=== PATIENT | female | born 1990 | race Hispanic/Latino ===

== ENCOUNTER 2021-02-05 12:18 | Inpatient (IN) | payer OTHER ==
[~2021-02-05] VITALS: Ht 160 cm; Wt 90.7 kg
[2021-02-05 12:54] LABS: BASOPHILS % (AUTO) 0.3 % (0.0-5.0); HEMATOCRIT 36.6 % (36-48); LYMPHOCYTES % (AUTO) 21.1 % (21.0-51.0); MEAN CORPUSCULAR HEMOGLOBIN 29.4 pg (27.0-33.0); MEAN CORPUSCULAR HGB CONC 35.8 g/dL (32.0-36.0); MEAN CORPUSCULAR VOLUME 82.1 fL (79-99); MONOCYTES % (AUTO) 7.6 % (3.0-13.0); NEUTROPHILS % (AUTO) 70.7 % (40.0-77.0); PLATELET COUNT (AUTO) 99 K/uL (130-400); RED BLOOD CELL COUNT(AUTO) 4.46 MIL/uL (4.00-5.50); RED CELL DISTRIBUTION WIDTH 12.3 % (11.0-15.5); WHITE BLOOD COUNT (AUTO) 3.9 K/uL (4.8-10.8)
[2021-02-05 12:57] LABS: APPEARANCE,URINE SL CLOUDY (CLEAR); BILIRUBIN,URINE MODERATE (NEGATIVE); COLOR,URINE DARK YELLOW (YELLOW); GLUCOSE, URINE (UA) NEGATIVE (NEGATIVE); KETONES,URINE >=80 mg/dL (NEGATIVE); LEUKOCYTE ESTERASE ,URINE NEGATIVE (NEGATIVE); NITRATE,URINE NEGATIVE (NEGATIVE); OCCULT BLOOD,URINE MODERATE (NEGATIVE); PROTEIN,URINE 30 mg/dL (NEGATIVE); UROBILINOGEN,URINE >=8.0 mg/dL (0.2-1.0)
[2021-02-05] MEDS ORDERED: ACETAMINOPHEN 500 MG TABLET PO SCH (13:00)
[2021-02-05 13:05] LABS: BACTERIA,URINE Few /HPF (None Seen); MUCUS,URINE Moderate LPF (None Seen); RBC,URINE 0-1 /HPF (0-1); SQUAMOUS EPITHELIAL CELL,UR Rare /HPF (0-2)
[2021-02-05 13:06] LABS: ALBUMIN 3.3 g/dL (3.5-5.0); BILIRUBIN,TOTAL 0.8 mg/dL (0.2-1.0); CREATININE 0.8 mg/dL (0.5-1.5); POTASSIUM 3.3 mmol/L (3.5-5.1); TOTAL PROTEIN, SERUM 7.8 g/dL (6.0-8.3)
[2021-02-05 13:11] LABS: INR 1.07 (0.85-1.15); PROTHROMBIN TIME 11.6 SEC (9.6-11.6)
[2021-02-05 13:12] LABS: PARTIAL THROMBOPLASTIN TIME 30.8 SEC (26.3-35.5)
[2021-02-05] MEDS ORDERED: 0.9%NACL 1000ML 1,000 ML IV ONE (13:30)
[2021-02-05] MEDS ORDERED: LEVOFLOXACIN 750 MG/D5W 150 ML 150 ML ONE (15:37)
[2021-02-05] MEDS ORDERED: KCL 20 MEQ ERTAB PO ONE ×2 (15:37→16:00)
[2021-02-05 15:55] LABS: ABG BASE EXCESS -3.8 mmol/L (-2.0-3.0); ABG HCO3 19.3 mmol/L (21.0-28.0); ABG OXYGEN SATURATION 96.5 % (95.0-99.0); ABG PCO2 30 mmHg (32-45)
[2021-02-05] MEDS ORDERED: ONDANSETRON 4MG INJ IV PRN (17:00)
[2021-02-05] MEDS ORDERED: VANCOMYCIN PROTOCOL PER PHARMACY IV PRN (17:00)
[2021-02-05] MEDS ORDERED: ACETAMINOPHEN 325 MG TAB PO PRN (17:00)
[2021-02-05] MEDS: 0.9%NACL 1000ML 1,000 ML IV SCH (17:25)
[2021-02-05] MEDS: CEFTRIAXONE 1G VIAL IV SCH (17:25)
[2021-02-05] MEDS: DOXYCYCLINE 100MG+NS 250ML 250 ML IV SCH (17:54)
[2021-02-05] MEDS ORDERED: COMPOUND IV REFRIGERATED 1 EACH IVSOLN MISC PRN (18:00)
[2021-02-05] MEDS: VANCOMYCIN 1.25GM/NS 250ML IVPB SCH ×2 (21:07)
[2021-02-05] MEDS: FAMOTIDINE 20MG VIAL IV SCH (21:07)
[2021-02-05 21:52] LABS: AMPHET/METH SCREEN,URINE NEGATIVE (NEGATIVE); BARBITURATE SCREEN, URINE NEGATIVE (NEGATIVE); BENZODIAZEPINES SCREEN,URINE NEGATIVE (NEGATIVE); CANNABINOID SCREEN,URINE POSITIVE (NEGATIVE); COCAINE SCREEN,URINE NEGATIVE (NEGATIVE); OPIATE SCREEN,URINE NEGATIVE (NEGATIVE); PHENCYCLIDINE SCREEN,URINE NEGATIVE (NEGATIVE)
[2021-02-06 03:35] VITALS: BP 143/103
[2021-02-06] MEDS: 0.9%NACL 1000ML 1,000 ML IV SCH ×2 (04:54→13:00)
[2021-02-06] MEDS: DOXYCYCLINE 100MG+NS 250ML 250 ML IV SCH ×2 (04:54→17:30)
[2021-02-06 06:30] LABS: BASOPHILS % (AUTO) 0.4 % (0.0-5.0); LYMPHOCYTES % (AUTO) 28.9 % (21.0-51.0); MEAN CORPUSCULAR HEMOGLOBIN 29.4 pg (27.0-33.0); MEAN CORPUSCULAR HGB CONC 35.5 g/dL (32.0-36.0); MEAN CORPUSCULAR VOLUME 82.9 fL (79-99); MONOCYTES % (AUTO) 9.5 % (3.0-13.0); NEUTROPHILS % (AUTO) 60.8 % (40.0-77.0); PLATELET COUNT (AUTO) 87 K/uL (130-400); RED CELL DISTRIBUTION WIDTH 12.4 % (11.0-15.5); WHITE BLOOD COUNT (AUTO) 2.6 K/uL (4.8-10.8)
[2021-02-06 06:46] LABS: CREATININE 0.6 mg/dL (0.5-1.5); CRP QUANTITATIVE 135.3 mg/L (0.00-9.0); POTASSIUM 3.4 mmol/L (3.5-5.1)
[2021-02-06 07:23] LABS: BAND NEUTROPHILS % (MANUAL) 4 % (0-2); LYMPHOCYTES % (MANUAL) 33 % (22-44); MONOCYTES % (MANUAL) 8 % (2-9); SEGMENTED NEUTROPHILS % 55 % (40-70)
[2021-02-06 07:24] LABS: MAN.DIFF COMMENT-IMPRESSION MANUAL DIFFERENTIAL
[2021-02-06] MEDS ORDERED: SODIUM CHLORIDE 3% FOR INHALATION 4 ML/AMP VIAL.NEB IH ONE ×2 (07:29→13:33)
[2021-02-06 08:00] VITALS: BP 116/71
[2021-02-06] MEDS ORDERED: ENOXAPARIN SODIUM 40 MG/0.4 ML SYRINGE SQ SCH (09:00)
[2021-02-06] MEDS ORDERED: LEVOFLOXACIN 750 MG/D5W 150 ML 150 ML IV SCH (09:00)
[2021-02-06] MEDS: FAMOTIDINE 20MG VIAL IV SCH ×2 (09:33→19:30)
[2021-02-06] MEDS: VANCOMYCIN 1.25GM/NS 250ML IVPB SCH ×2 (09:33)
[2021-02-06 11:57] VITALS: BP 119/77
[2021-02-06] MEDS: ACETAMINOPHEN 325 MG TAB PO PRN (12:41)
[2021-02-06 16:00] VITALS: BP 123/71
[2021-02-06] MEDS: CEFTRIAXONE 1G VIAL IV SCH (17:30)
[2021-02-06] MEDS ORDERED: POTASSIUM CHLORIDE 10MEQ SR TAB PO SCH (18:00)
[2021-02-06 19:22] VITALS: BP 134/72
[2021-02-06 23:36] VITALS: BP 118/63
[2021-02-07] MEDS: ACETAMINOPHEN 325 MG TAB PO PRN ×2 (00:42→16:45)
[2021-02-07] MEDS: DOXYCYCLINE 100MG+NS 250ML 250 ML IV SCH ×2 (03:28→16:44)
[2021-02-07] MEDS: 0.9%NACL 1000ML 1,000 ML IV SCH ×3 (03:28→19:00)
[2021-02-07 04:14] VITALS: BP 111/64
[2021-02-07 06:32] LABS: BASOPHILS % (AUTO) 0.6 % (0.0-5.0); EOSINOPHILS % (AUTO) 0.6 % (0.0-8.0); HEMATOCRIT 33.7 % (36-48); LYMPHOCYTES % (AUTO) 33.6 % (21.0-51.0); MEAN CORPUSCULAR HEMOGLOBIN 28.6 pg (27.0-33.0); MEAN CORPUSCULAR HGB CONC 32.6 g/dL (32.0-36.0); MEAN CORPUSCULAR VOLUME 87.5 fL (79-99); NEUTROPHILS % (AUTO) 55.3 % (40.0-77.0); PLATELET COUNT (AUTO) 103 K/uL (130-400); RED BLOOD CELL COUNT(AUTO) 3.85 MIL/uL (4.00-5.50); RED CELL DISTRIBUTION WIDTH 12.5 % (11.0-15.5); WHITE BLOOD COUNT (AUTO) 3.2 K/uL (4.8-10.8)
[2021-02-07 06:59] LABS: ALBUMIN 2.6 g/dL (3.5-5.0); BILIRUBIN,TOTAL 0.4 mg/dL (0.2-1.0); CREATININE 0.7 mg/dL (0.5-1.5); POTASSIUM 3.7 mmol/L (3.5-5.1); TOTAL PROTEIN, SERUM 6.5 g/dL (6.0-8.3)
[2021-02-07 08:04] VITALS: BP 111/77
[2021-02-07] MEDS: FAMOTIDINE 20MG VIAL IV SCH ×2 (08:42→20:03)
[2021-02-07 11:03] VITALS: BP 112/68
[2021-02-07 15:58] VITALS: BP 111/79
[2021-02-07] MEDS: CEFTRIAXONE 1G VIAL IV SCH (16:44)
[2021-02-07 19:24] VITALS: BP 123/49
[2021-02-07] MEDS: TERBINAFINE HCL 15 GM TUBE TP SCH (21:55)
[2021-02-07 23:29] VITALS: BP 118/53
[2021-02-08 03:30] VITALS: BP 117/63
[2021-02-08] MEDS: ACETAMINOPHEN 325 MG TAB PO PRN ×2 (03:34→08:43)
[2021-02-08] MEDS: 0.9%NACL 1000ML 1,000 ML IV SCH (04:07)
[2021-02-08] MEDS: DOXYCYCLINE 100MG+NS 250ML 250 ML IV SCH (04:07)
[2021-02-08 07:19] LABS: BASOPHILS % (AUTO) 0.6 % (0.0-5.0); EOSINOPHILS % (AUTO) 0.6 % (0.0-8.0); HEMATOCRIT 31.7 % (36-48); LYMPHOCYTES % (AUTO) 31.3 % (21.0-51.0); MEAN CORPUSCULAR HEMOGLOBIN 29.1 pg (27.0-33.0); MEAN CORPUSCULAR HGB CONC 34.1 g/dL (32.0-36.0); MEAN CORPUSCULAR VOLUME 85.4 fL (79-99); MONOCYTES % (AUTO) 7.2 % (3.0-13.0); NEUTROPHILS % (AUTO) 58.9 % (40.0-77.0); PLATELET COUNT (AUTO) 125 K/uL (130-400); RED BLOOD CELL COUNT(AUTO) 3.71 MIL/uL (4.00-5.50); RED CELL DISTRIBUTION WIDTH 12.6 % (11.0-15.5); WHITE BLOOD COUNT (AUTO) 3.5 K/uL (4.8-10.8)
[2021-02-08 07:40] LABS: ALBUMIN 2.5 g/dL (3.5-5.0); BILIRUBIN,TOTAL 0.4 mg/dL (0.2-1.0); CREATININE 0.7 mg/dL (0.5-1.5); MAGNESIUM 1.8 mg/dL (1.80-2.40); POTASSIUM 3.6 mmol/L (3.5-5.1); TOTAL PROTEIN, SERUM 6.5 g/dL (6.0-8.3)
[2021-02-08 08:00] VITALS: BP 111/57
[2021-02-08] MEDS: FAMOTIDINE 20MG VIAL IV SCH (08:40)
[2021-02-08] MEDS: TERBINAFINE HCL 15 GM TUBE TP SCH (08:41)
[2021-02-08 11:55] VITALS: BP 123/70
[2021-02-08] MEDS ORDERED: DOXY-336 PO (13:54)
[2021-02-08] MEDS ORDERED: PANT20TA PO (13:54)
== END 2021-02-08 17:00 | disposition home or self-care (01) | DRG 872 ==
LOC: EDH 12:18 → EDHIP 12:19 → UNDOADMIN 16:32 → 4BH 02-06 03:40
PROVIDERS: ADMIT Internal Medicine; ATTEND Internal Medicine
DX: A41.9 Sepsis, unspecified organism (principal); E87.1 Hypo-osmolality and hyponatremia; D61.818 Other pancytopenia; A75.9 Typhus fever, unspecified; A79.9 Rickettsiosis, unspecified; D69.6 Thrombocytopenia, unspecified; E66.9 Obesity, unspecified; Z20.822 Contact with and (suspected) exposure to COVID-19; Z68.35 Body mass index [BMI] 35.0-35.9, adult; R53.81 Other malaise; E86.0 Dehydration; E86.1 Hypovolemia; K75.9 Inflammatory liver disease, unspecified; F12.90 Cannabis use, unspecified, uncomplicated; B37.9 Candidiasis, unspecified; Z98.891 History of uterine scar from previous surgery; Z71.41 Alcohol abuse counseling and surveillance of alcoholic; Z71.89 Other specified counseling; Z83.3 Family history of diabetes mellitus; Z82.49 Family history of ischemic heart disease and other diseases of the circulatory system
CPT/HCPCS: 36415; 36600; 70450; 71045; 71250; 76705; 80048; 80053; 80305; 81001; 81025; 82550; 82803; 83605; 83735; 84145; 84484; 85025; 85610; 85651; 85730; 86140; 86701; 86757; 87040; 87071; 87088; 87205; 87390; 87635; 87804; 87880; 93005; 94640; C9803; G0378; J0696; J1956; J3370; J3490; J7030; J7050

== ENCOUNTER 2021-07-14 14:16 | Emergency (ER) | payer MEDICAID ==
[~2021-07-14] VITALS: Ht 160 cm; Wt 89.8 kg
[~2021-07-14 14:16] MED LIST: DOXY-336 PO; PANT20TA PO
[2021-07-14 14:20] VITALS: BP 113/70
[2021-07-14] MEDS ORDERED: IBUPROFEN 600 MG TABLET ONE (14:28)
[2021-07-14] MEDS ORDERED: TETANUS/DIPHTHERIA TOXOID [ADULT] 0.5 ML VIAL IM ONE ×2 (14:29→14:30)
[2021-07-14] MEDS ORDERED: IBUPROFEN 600 MG TABLET PO ONE (14:30)
[2021-07-14] MEDS ORDERED: CEPH500B PO (15:07)
[2021-07-14] MEDS ORDERED: IBUP-2071 PO (15:08)
[2021-07-14] MEDS ORDERED: CEPHALEXIN 500 MG CAPSULE PO ONE (15:30)
== END 2021-07-14 15:32 | disposition home or self-care (01) ==
LOC: EDH 14:16
DX: S91.131A Puncture wound without foreign body of right great toe without damage to nail, initial encounter (principal); L03.031 Cellulitis of right toe; W45.0XXA Nail entering through skin, initial encounter; Y93.89 Activity, other specified; Y92.89 Other specified places as the place of occurrence of the external cause; Y99.8 Other external cause status
CPT/HCPCS: 73630; 90471; 90714

== ENCOUNTER 2022-12-03 09:11 | Emergency (ER) | payer MEDICAID ==
[~2022-12-03] VITALS: Ht 160 cm; Wt 89.8 kg
[~2022-12-03 09:11] MED LIST changes: +CEPH500B PO; -DOXY-336 PO; +DOXY-469 PO; +IBUP-2071 PO
[2022-12-03 10:41] LABS: SARS-CoV-2, RNA, NAAT POSITIVE SARS CoV-2 (NEGATIVE)
[2022-12-03 11:18] LABS: INFLUENZA TYPE A Negative For Type A (NEGATIVE); INFLUENZA TYPE B Negative For Type B (NEGATIVE)
[2022-12-03 11:45] VITALS: BP 132/70; PULSE 64; RESP 17; O2SAT 99
== END 2022-12-03 12:12 | disposition home or self-care (01) ==
LOC: EDH 09:11
DX: U07.1 COVID-19 (principal); E66.9 Obesity, unspecified; Z79.899 Other long term (current) drug therapy; Z98.890 Other specified postprocedural states
CPT/HCPCS: 99284; 71045; 87635; 87804 ×2; 36415; C9803

== ENCOUNTER 2023-10-04 19:52 | Emergency (ER) | payer SELFPAY ==
[~2023-10-04] VITALS: Ht 160 cm; Wt 97.5 kg
[~2023-10-04 19:52] MED LIST changes: -DOXY-469 PO; +DOXY100C61 PO
[2023-10-04] MEDS: IBUPROFEN 800 MG TAB PO ONE (20:40)
[2023-10-04 20:41] LABS: SARS-CoV-2, RNA, NAAT NEGATIVE SARS CoV-2 (NEGATIVE)
[2023-10-04 20:50] LABS: RAPID GROUP A STREP positive (NEGATIVE)
[2023-10-04 20:52] LABS: INFLUENZA TYPE A Negative For Type A (NEGATIVE); INFLUENZA TYPE B Negative For Type B (NEGATIVE)
[2023-10-04] MEDS ORDERED: METH4TAB3 PO (20:59)
[2023-10-04] MEDS ORDERED: AMOX1TAB16 PO (20:59)
[2023-10-04] MEDS: cefTRIAXone 1G VIAL IM ONE (21:19)
[2023-10-04 21:27] VITALS: BP 134/76; PULSE 66; RESP 16; O2SAT 100
== END 2023-10-04 21:35 | disposition home or self-care (01) ==
LOC: EDH 19:52
DX: J02.0 Streptococcal pharyngitis (principal); E66.9 Obesity, unspecified; Z20.822 Contact with and (suspected) exposure to COVID-19; Z79.899 Other long term (current) drug therapy; Z98.51 Tubal ligation status
CPT/HCPCS: 99284; 87635; 87880; 87804 ×2; 96372; 93005; J0696

== ENCOUNTER 2023-12-29 21:13 | Emergency (ER) | payer OTHER ==
[~2023-12-29] VITALS: Ht 162.6 cm; Wt 108.9 kg
[~2023-12-29 21:13] MED LIST changes: +AMOX1TAB16 PO; +METH4TAB3 PO
[2023-12-29] MEDS: acetaMINOPHEN 500 MG TABLET PO ONE (21:50)
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
[2023-12-29] MEDS: methoCARBamol 500 MG TABLET PO SCH (23:19)
[2023-12-29 23:54] LABS: BASOPHILS # (AUTO) 0.03 K/uL (0.00-0.20); BASOPHILS % (AUTO) 0.3 % (0.0-5.0); EOSINOPHILS # (AUTO) 0.11 K/uL (0.00-0.70); EOSINOPHILS % (AUTO) 1.2 % (0.0-8.0); HEMATOCRIT 33.8 % (36-48); IMMATURE GRANULOCYTE ABSOLUTE 0.03 K/uL (0-1); LYMPHOCYTES % (AUTO) 21.4 % (21.0-51.0); MEAN CORPUSCULAR HEMOGLOBIN 29.5 pg (27.0-33.0); MEAN CORPUSCULAR HGB CONC 35.2 g/dL (32.0-36.0); MEAN CORPUSCULAR VOLUME 83.7 fL (79-99); MONOCYTES # (AUTO) 0.5 K/uL (0.1-1.0); MONOCYTES % (AUTO) 5.5 % (3.0-13.0); NEUTROPHILS # (AUTO) 6.5 K/uL (1.8-7.7); NEUTROPHILS % (AUTO) 71.3 % (40.0-77.0); PLATELET COUNT (AUTO) 193 K/uL (130-400); RED BLOOD CELL COUNT(AUTO) 4.04 MIL/uL (4.00-5.50); RED CELL DISTRIBUTION WIDTH 12.9 % (11.0-15.5); WHITE BLOOD COUNT (AUTO) 9.2 K/uL (4.8-10.8)
[2023-12-30 00:02] LABS: CREATININE 0.8 mg/dL (0.5-1.0); POTASSIUM 5.2 mmol/L (3.5-5.1)
[2023-12-30 00:04] LABS: INR 0.95 (0.85-1.15); PROTHROMBIN TIME 10.3 SEC (9.6-11.6)
[2023-12-30 00:06] LABS: PARTIAL THROMBOPLASTIN TIME 23.6 SEC (26.3-35.5)
[2023-12-30] MEDS ORDERED: IOHEXOL-350 75 ML VIAL IV ONE (00:34)
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
[2023-12-30] MEDS ORDERED: NAPR-1196 PO (01:40)
[2023-12-30] MEDS ORDERED: METH-811 PO (01:40)
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
[2023-12-30 01:41] VITALS: BP 125/52; PULSE 88; RESP 18; TEMP 98.3; O2SAT 96
--- NOTE | 2023-12-30 09:08 | HMCIMG ---
CHEST 1VW REASON: Injury COMPARISON: 12/03/2022 FINDINGS: Single view of the chest was obtained. Lungs are clear. Heart size is normal. There is no pulmonary vascular congestion. Mediastinum and bony thorax appear unremarkable. IMPRESSION: 1. Normal single view chest x-ray.
== END 2023-12-30 01:50 | disposition home or self-care (01) ==
LOC: EDH 21:13
DX: S13.9XXA Sprain of joints and ligaments of unspecified parts of neck, initial encounter (principal); M19.90 Unspecified osteoarthritis, unspecified site; E66.9 Obesity, unspecified; Z79.899 Other long term (current) drug therapy; Z98.51 Tubal ligation status; V89.2XXA Person injured in unspecified motor-vehicle accident, traffic, initial encounter; Y93.I9 Activity, other involving external motion; Y92.89 Other specified places as the place of occurrence of the external cause; Y99.8 Other external cause status
CPT/HCPCS: 99285; 70450; 71045; 80048; 85025; 85610; 85730; 36415; 71260; 70490; Q9967

== ENCOUNTER 2024-12-29 03:02 | Emergency (ER) | payer MEDICAID ==
[~2024-12-29] VITALS: Ht 160 cm; Wt 95.3 kg
--- NOTE | 2024-12-29 03:05 | NUR ---
UA CUP PROVIDED
--- NOTE | 2024-12-29 03:10 | NUR ---
UA COLLECTED AND SENT
[2024-12-29 03:21] LABS: APPEARANCE,URINE CLOUDY (CLEAR); GLUCOSE, URINE (UA) NEGATIVE (NEGATIVE); LEUKOCYTE ESTERASE ,URINE 500 Leu/uL (NEGATIVE); NITRATE,URINE NEGATIVE (NEGATIVE); OCCULT BLOOD,URINE MODERATE (NEGATIVE)
[2024-12-29 03:22] LABS: HCG,QUALITATIVE URINE NEGATIVE (NEGATIVE)
[2024-12-29 03:23] LABS: ADD UA MICROSCOPIC YES
[2024-12-29 03:24] LABS: SQUAMOUS EPITHELIAL CELL,UR FEW /HPF (0-2)
[2024-12-29] MEDS ORDERED: CEPH500T PO (03:36)
--- NOTE | 2024-12-29 03:37 | ERN ---
General Chief Complaint: Painful Urination Stated Complaint: PAINFUL UA Time Seen by MD: 03:27 History of Present Illness Initial Comments 34-year-old female here with no past medical history for evaluation of dysuria x2 days. States she has been having lower abdominal cramping as well as pain with the urination. No known drug allergies Allergies: Coded Allergies: No Known Drug Allergies (Unverified Allergy, Unknown, 02/05/21) Home Meds No Active Prescriptions or Reported Meds Past Medical History Past Medical History: No Pertinent History Medical History Other: Obesity Past Surgical History: Surgical History Other: Tubal ligation Family History Family History: DM, HTN Social History Social History: Negative Female( History) History: Not Applicable LMP: Nov 17, 2024 Genitourinary: (+) dysuria Review of Systems: was completed, & the rest were negative. Physical Exam Physical Exam Dictation GENERAL APPEARANCE NAD, activity normal for age, well developed/ well nourished, no cyanosis, pallor, or diaphoresis. EYES lids/conjunctiva normal. EARS/NOSE/THROAT Mucous membranes moist, nares normal, lips/teeth normal uvula midline without oral pharyngeal erythema, exudate or swelling TMs normal bilaterally. No lymphangitis/lymphedema. HEAD/NECK normocephalic atraumatic, no facial trauma, neck is supple. RESPIRATORY respiratory effort normal, speaks in full sentences, no tripod position, no accessory muscle use. Lungs clear to auscultation without rhonchi, wheezes, rales CARDIAC Regular rate and rhythm, no edema. ABDOMINAL Soft, ND/NT. No evidence of fluid wave. No pulsatile masses on exam, rebound tenderness, Jensen sign or pain over Mcburney's point. MUSCLES/EXTREMITIES No abnormal range of motion, no swelling. SKIN Warm, pink and dry. No rashes, dermatoses, petechiae or lesions. NEUROLOGICAL Speech is clear and appropriate. Normal level of consciousness. Gait and coordination are normal. 5/5 strength in all extremities. PSYCH Normal mood and affect. Judgement/competence is appropriate Results Laboratory and Microbiology Lab and Micro Result Laboratory Tests Test 12/29/24 03:10 Urine Color LIGHT-YELLOW (YELLOW) Urine Appearance CLOUDY (CLEAR) H Urine pH 6.0 (5.0-8.0) Urine Specific [place] 1.017 (1.001-1.031) Urine Protein NEGATIVE mg/dL (NEGATIVE) Urine Glucose (UA) NEGATIVE mg/dL (NEGATIVE) Urine Ketones NEGATIVE mg/dL (NEGATIVE) Urine Occult Blood MODERATE (NEGATIVE) H Urine Nitrate NEGATIVE (NEGATIVE) Urine Bilirubin NEGATIVE mg/dL (NEGATIVE) Urine Urobilinogen 0.2 mg/dL (0.2-1.0) Urine Leukocyte Esterase 500 Missy/uL (NEGATIVE) H Urine RBC 26-50 /HPF (0-1) H Urine WBC 51-100 /HPF (0-1) H Urine Squamous Epithelial Cells FEW /HPF (0-2) Urine Bacteria RARE /HPF (None Seen) Urine HCG, Qualitative NEGATIVE (NEGATIVE) MDM 34-year-old female here for evaluation of dysuria. We will get urine studies and likely discharge home. ED Course Orders Procedure Category Date Status Time Urinalysis Profile LAB 12/29/24 Complete 03:12 ,Urine Test LAB 12/29/24 Complete 03:12 Culture Urine LUDIVINA 12/29/24 In Process 03:23 Ceftriaxone 1g Vial PHA 12/29/24 Verified (Rocephine 1g Inj) 04:00 Vital Signs Date Time Temp Pulse Resp B/P (MAP) Pulse Ox O2 Delivery O2 Flow Rate FiO2 12/29/24 03:04 98.2 67 18 136/82 99 Room Air DX & DISP Disposition: Discharge Departure Impression: Primary Impression: UTI (urinary tract infection) Condition: Stable Scripts Cephalexin (Cephalexin) 500 Mg Tablet 1 TAB PO BID for 7 Days, #14 TAB 0 Refills Prov: NEO CONNER MD 12/29/24 Referrals: SELF,REFERRAL (PCP) NEO CONNER MD Dec 29, 2024 03:37
[2024-12-29 05:04] VITALS: BP 115/57; PULSE 85; RESP 15; TEMP 98.5; O2SAT 15
== END 2024-12-29 05:10 | disposition home or self-care (01) ==
LOC: EDH 03:02
DX: N39.0 Urinary tract infection, site not specified (principal); E66.9 Obesity, unspecified; Z68.37 Body mass index [BMI] 37.0-37.9, adult; Z98.51 Tubal ligation status; Z98.890 Other specified postprocedural states
CPT/HCPCS: 99283; 87086; 81001; 81025; 96372; J0696